=== PATIENT | female | born 2000 | race Caucasian/White ===

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

== ENCOUNTER 2018-09-08 12:08 | Observation (INO) ==
[2018-09-08 13:02] LABS: Bilirubin,Urine Negative (Negative); Blood,Urine Negative (Negative); Clarity,Urine Cloudy (Clear); Color,Urine Yellow (Yellow); Glucose,Urine (UA) Normal (Normal); Ketones,Urine 15 mg/dL (Negative); Leukocyte Esterase,Urine Moderate (Negative); Nitrite,Urine Negative (Negative); PH,Urine 7.5 pH Units (5.0-8.0); Protein,Urine Negative (Neg-Trace); Specific Gravity,Urine 1.012 (1.010-1.025); Urobilinogen,Urine Normal (Normal)
[2018-09-08 13:04] LABS: Hyaline Casts,Urine Moderate per lpf (None-Few); Squamous Epithelial Cell,Urine Moderate per lpf (None-Few); WBC,Urine 50-100 per hpf (0-3)
[2018-09-08 13:17] LABS: Bacteria,Urine Many per hpf (None-Few)
[2018-09-08 13:22] LABS: Amphetamine Screen,Urine Negative ng/mL (Cutoff=1000); Barbiturate Screen,Urine Negative ng/mL (Cutoff=200); Benzodiazepines Screen,Urine Negative ng/mL (Cutoff=200); Cannabinoid Screen,Urine Negative ng/mL (Cutoff = 50); Cocaine Screen,Urine Negative ng/mL (Cutoff= 300); Opiate Screen,Urine Negative ng/mL (Cutoff=300); Phencyclidine Screen,Urine Negative ng/mL (Cutoff=25)
[2018-09-08] MEDS ORDERED: Ringers Solution, Lactated 1,000 ML IVC ONE (13:33)
[2018-09-08] MEDS ORDERED: Ringers Solution, Lactated 1,000 ML IVC SCH (13:45)
[2018-09-08] MEDS ORDERED: NIFEdipine 10 MG CAPSULE PO SCH (14:45)
[2018-09-08] MEDS ORDERED: Betamethasone Acet/SodPhos 30 MG/5 ML VIAL IM SCH (14:45)
[2018-09-08] MEDS ORDERED: Terbutaline 1 MG/ML VIAL SQ ONE (17:19)
[2018-09-08 17:38] LABS: Candida DNA DETECTED (Not Detect); Gardnerella DNA Not Detected (Not Detect); Trichomonas DNA Not Detected (Not Detect)
--- NOTE | 2018-09-08 19:42 | OB/GYN Progress Note ---
Date of Encounter: 09/08/18 Time of Encounter: 19:39 - Assessment and Plan (1) 34 weeks gestation of Current Visit: Yes Status: Acute (2) Uterine contractions during Current Visit: Yes Status: Acute Patient given LR bolus, nifedipine 20 mg by mouth, and terbutaline. During stay to contractions are finally calmed. No change on serial cervical exams after multiple exams. Plan of care discussed with Dr. Burnett. Vaginosis panel shows yeast, will discharge home with Terazol cream and nifedipine for breakthrough contractions. Discharged home with labor and when to return to triage precautions. She will verbalizes understanding and is in agreement with plan Subjective - Subjective Interval history: 34+4 weeks gestation presents to triage with complaints of frequent painful uterine contractions. Patient states she is been having contractions since last evening more intense today reports good movement, had some leaking of fluid yesterday, none today. Denies vaginal bleeding. Antepartum ROS: loss of fluid, movement normal, contractions, no vaginal bleeding Objective - Vital Signs Vital Signs: Intake and Output 09/08/18 09/08/18 09/08/18 07:59 15:59 23:59 Other: Weight 89.9 kg Patient Weight 09/08/18 23:59 Weight 89.9 kg - Exam FHR: auscultation normal FHR comments: 140/category 1 tracing Abdomen: Present: soft Uterus: Present: normal Cervical dilation: /-2 - Labs Labs: Abnormal lab results Cloudy (Clear) A 09/08/18 12:41 15 mg/dL (Negative) H 09/08/18 12:41 Ur Leukocyte Esterase Moderate (Negative) H 09/08/18 12:41 50-100 per hpf (0-3) H 09/08/18 12:41 Ur Squamous Epith Cells Moderate per lpf (None-Few) H 09/08/18 12:41 Many per hpf (None-Few) H 09/08/18 12:41 Hyaline Casts Moderate per lpf (None-Few) H 09/08/18 12:41 Ur Culture Indicated? YES (NO) A 09/08/18 12:41 Dodie species DNA DETECTED (Not Detect) A 09/08/18 14:17
== END 2018-09-08 19:48 | disposition home or self-care (01) ==
LOC: 1NENULAB
PROVIDERS: ADMIT Obstetrics & Gynecology; ATTEND Obstetrics & Gynecology

== ENCOUNTER → 2018-09-09 16:07 | Observation (INO) ==
[2018-09-09 15:55] VITALS: BP 111/69
[~2018-09-09 16:07] MED LIST: Betamethasone Acet/SodPhos 30 MG/5 ML VIAL IM SCH
--- NOTE | 2018-09-17 10:30 | Event Note ---
Date of Encounter: 09/09/18 Time of Encounter: 15:30 Patient presented for follow-up Betamethasone injection to complete course of steroids. Injection was given by RN and patient left facility in stable condition.
== END | disposition home or self-care (01) ==
LOC: 1NENULAB
PROVIDERS: ADMIT Advanced Practice Midwife; ATTEND Advanced Practice Midwife

== ENCOUNTER 2018-10-11 06:00 | Inpatient (IN) ==
[2018-10-11] MEDS ORDERED: Metoclopramide 10 MG/2 ML VIAL IVP PRN (06:05)
[2018-10-11] MEDS ORDERED: Ondansetron 4 MG/2 ML VIAL IVP PRN ×2 (06:05→09:05)
[2018-10-11] MEDS ORDERED: miSOPROStol 25 MCG TABLET PO PRN (06:05)
[2018-10-11] MEDS ORDERED: Famotidine 20 MG/2 ML VIAL IVP PRN (06:05)
[2018-10-11] MEDS ORDERED: Lidocaine 1% 20 ML MDV INFILT PRN (06:05)
[2018-10-11] MEDS ORDERED: Naloxone 0.4 MG/ML INJ IVP PRN ×2 (06:05→09:05)
[2018-10-11] MEDS ORDERED: Ringers Solution, Lactated 1,000 ML IVC SCH (06:15)
[2018-10-11 06:40] LABS: Amphetamine Screen,Urine Negative ng/mL (Cutoff=1000)
[2018-10-11 06:41] LABS: Barbiturate Screen,Urine Negative ng/mL (Cutoff=200)
[2018-10-11 06:42] LABS: Benzodiazepines Screen,Urine Negative ng/mL (Cutoff=300); Cannabinoid Screen,Urine Negative ng/mL (Cutoff = 50); Cocaine Screen,Urine Negative ng/mL (Cutoff= 300); Opiate Screen,Urine Negative ng/mL (Cutoff=300); Phencyclidine Screen,Urine Negative ng/mL (Cutoff=25)
[2018-10-11 06:42] LABS: Basophils % 0.3 %; Eosinophils # 0.1 K/mcL (0.0-0.6); Eosinophils % 0.9 %; Hematocrit 32.1 % (35.3-44.9); Hemoglobin 10.1 g/dL (11.5-15.4); Immature Granulocytes % 0.9 % (0-4); Lymphocytes # 2.5 K/mcL (0.6-4.6); Lymphocytes % 35.2 %; Mean Corpuscular HGB Conc 31.5 g/dL (31.6-35.5); Mean Corpuscular Hemoglobin 26.2 pg (28.0-33.3); Mean Corpuscular Volume 83.4 fL (83.0-100.0); Monocytes # 0.6 K/mcL (0.0-1.3); Monocytes % 8.4 %; Neutrophils # 3.8 K/mcL (1.6-8.9); Platelet Count 235 K/mcL (140-400); Red Blood Count 3.85 M/mcL (3.82-4.97); Red Cell Distribution Width 13.9 % (11.5-14.5); Segmented Neutrophils % 54.3 %; White Blood Count 7.1 K/mcL (4.3-11.1)
--- NOTE | 2018-10-11 08:30 | OB/GYN History & Physical ---
Date of Encounter: 10/11/18 Time of Encounter: 08:26 Assessment and Plan (1) 39 weeks gestation of Current visit: No Status: Acute admitted for IOL Reactive NST PO cytotec 50mcg x1 May have Nubain or Epidural when desired Dr. Bolden here utilization supervisor and available if needed (2) Elective induction of labor planned Current visit: No Status: Acute Vargas Score 8 50mcg PO cytotec History of Present Illness Chief complaint: IOL HPI: Ms. Lan is a 18 year old female @ 39w2d presents for scheduled IOL for term with a favorable cervix. IOL discussed and reviewed with Dr. Bolden who agrees with POC. Patient reports good movement and irregular contractions. Patient denies LOF or VB. Patient received care with [facility]. Blood type: O+ Rubella: Immune Hep B: Nonreactive GBS: Negative Past Med Surg Social Fam HX - Past Medical History Source: patient Medical history: asthma Additional medical history: has 4 month old baby girl Psychiatric history: no psych history - Past Surgical History Surgical History: other Additional surgical history: vocal cord surgery - Social History Smoking Status: Never smoker Smokeless Tobacco Status: No Alcohol use: none Drug use: none - Family History Grandfather Living Status: Hx Family Cancer: Yes Hx Family Endocrine Disorder: Yes (diabetes) Obstetrical History - Pregnancies : 2 Para: 1 Term: 1 : 0 Ab's: 0 Livin Medications and Allergies Cephalexin [Keflex] 500 mg PO TID 10/11/18 [History] Allergy/AdvReac Type Severity Reaction Status Date / Time Amoxicillin [From Augmentin] Allergy Rash Verified 10/11/18 06:42 clavulanic acid Allergy Rash Verified 10/11/18 06:42 [From Augmentin] codeine Allergy Rash Verified 10/11/18 06:42 dextromethorphan Allergy Rash Verified 10/11/18 06:42 [From Capmist DM] guaifenesin [From Capmist DM] Allergy Rash Verified 10/11/18 06:42 Penicillins Allergy Rash Verified 10/11/18 06:42 pseudoephedrine Allergy Rash Verified 10/11/18 06:42 [From Capmist DM] Sulfa (Sulfonamide Allergy Rash Verified 10/11/18 06:42 Antibiotics) Review of System OB - Constitutional Constitutional ROS IM: no chills, no fever(s), no headache(s) - Cardiovascular Cardiovascular: no chest pain, no edema, no syncope - Respiratory Respiratory: no cough, no dyspnea - Genitourinary Genitourinary: no abnormal vaginal bleeding, no dyspareunia, no dysuria, no urinary frequency, no urinary hesitancy, no vaginal odor Exam - Constitutional Constitutional: well developed, well nourished, no acute distress, average body habitus - HEENT HEENT: Normocephaly, Mucus Membranes Moist - Neck Neck exam: full ROM, supple - Lungs Respiratory exam: CTAB - Cardiovascular Cardiovascular exam: RRR, +S1, +S2 - Abdomen Abdomen: Present: bowel sounds normal, gravid, non tender - Extremities Extremities exam: full ROM, normal capillary refill, normal inspection Deep Tendon Reflex Grade: 2+ Normal - Cervix Dilation: 4 Effacement: 80 Station: -1 - Uterus Uterus exam: Present: normal size, normal contour - Anus/Rectum Anus/Rectum: Present: normal perianal skin - Comments Comments: FHR 135 bpm moderate variability +accels no decels noted. Contractions 3-3.5 Cat. 1 tracing Results Result Diagrams: 10/11/18 06:06 Abnormal lab results Hgb 10.1 g/dL (11.5-15.4) L 10/11/18 06:06 Hct 32.1 % (35.3-44.9) L 10/11/18 06:06 MCH 26.2 pg (28.0-33.3) L 10/11/18 06:06 MCHC 31.5 g/dL (31.6-35.5) L 10/11/18 06:06 All other labs normal. - VTE Reasons for not Prescribing Prophylaxis: Treatment not Indicated - Low risk for VTE
[2018-10-11] MEDS ORDERED: EPHEDrine 50 MG/ML VIAL IVP PRN (09:05)
[2018-10-11] MEDS ORDERED: Ropivacaine/PF 0.2% 20 ML VIAL EP ONE (09:05)
[2018-10-11] MEDS ORDERED: *HR* FentaNYL (PF) 100 MCG/2 ML VIAL EP ONE (09:05)
[2018-10-11] MEDS ORDERED: Epidural Premix (fent/bupiv) 110 ML EP SCH (09:15)
[2018-10-11] MEDS ORDERED: Oxytocin 20 units/ LR 1000 mL 20 UNIT/1,000 ML BAG IVC ONE ×2 (09:19→13:49)
--- NOTE | 2018-10-11 09:43 | Anesthesia Evaluation PreOp ---
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 Other Medical History: Denies Any Significant HX, Other (recent tooth abcess, receiving antibiotic regimen) Anesthesia History: No Prior Anesthetic Complications, Past Anesthesia (Surgery on Vocal cords as a child) : Yes Alcohol Use: none Drug use: none Medications and Allergies Cephalexin [Keflex] 500 mg PO TID 10/11/18 [History] Allergy/AdvReac Type Severity Reaction Status Date / Time Amoxicillin [From Augmentin] Allergy Rash Verified 10/11/18 06:42 clavulanic acid Allergy Rash Verified 10/11/18 06:42 [From Augmentin] codeine Allergy Rash Verified 10/11/18 06:42 dextromethorphan Allergy Rash Verified 10/11/18 06:42 [From Capmist DM] guaifenesin [From Capmist DM] Allergy Rash Verified 10/11/18 06:42 Penicillins Allergy Rash Verified 10/11/18 06:42 pseudoephedrine Allergy Rash Verified 10/11/18 06:42 [From Capmist DM] Sulfa (Sulfonamide Allergy Rash Verified 10/11/18 06:42 Antibiotics) - Meds/Allergy Pre-op Review Medications Reviewed: Yes Allergies Reviewed: Yes Beta Blockers on Current Med List: No Anesthesia Results - Labs 10/11/18 06:06 Anesthesia Exam BP 125/75 P 80 R 18 98.9 Height: 5'8" Weight: 91.0kg NPO (# of Hours): 8 Pain Scale: 8 Pain Scale Used: Numeric (1 - 10) - HEENT Pupil (Motor): Pupils equal Mallampati: II Teeth: Normal Oral Opening: Greater than 3 - TURPENTINE FARMER LOC: Oriented TURPENTINE FARMER Motor: Normal RUE, Normal LUE, Normal RLE, Normal LLE, Normal Face TURPENTINE FARMER Sensory: Normal: RUE, LUE, RLE, LLE, Face - Cardiac Rhythm: Regular Murmur: None JVD: No Carotid Bruit: No - Pulmonary Breath Sounds: bilateral Clear Respiratory Effort: Symmetrical Anesthesia Assess/Plan ASA Score: 2 Level of consciousness: Cooperative, Oriented, Tranquil Anesthetic Plan: Epidural Autologous Blood: No Monitoring Plan: Standard Monitors Recovery Plan: Other
[2018-10-11] MEDS ORDERED: Epidural Premix (fent/bupiv) 110 ML EP ONE (09:44)
--- NOTE | 2018-10-11 10:13 | Anesthesia Procedures ---
Date of Encounter: 10/11/18 Time of Encounter: 09:21 Procedures: Anesthesia - Epidural/Spinal Patient ID/Chart reviewed: Yes Patient examined: Yes OB Eval: Gestational age: 39 OB Eval: : 2 OB Eval: Hx Para: 1 OB Eval: Dilated at (cm): 4 OB Eval: Contractions: Non-stressed pattern Consent Obtained: Yes Supplemental Oxygen: None/Room Air Site Prep: Aseptic Technique, Sterile prep and drape, Povidone-Iodine 1% Patient position: upright Local Anesthetic: Lidocaine 1% Amount of Local Anesthetic used: 3 Touhy Needle Gauge: 18 Touhy Needle Depth (cm): 4 Catheter Depth at Skin (cm): 12 Test Dose (1.5% Lido + Epi): Volume given (mls): 3 Test Dose Result: Negative Loading Dose: Fentanyl (mcg): 100 Loading Dose: Other: Ropivicaine 0.2% 5ml, NS 3ml Loading Dose Administered: Thru Catheter Infusion Med: 0.125% Bupivacaine w/ 2 mcg/ml Fentanyl Infusion Rate (mls/hr): [address]: Tegaderm, Tape Interspace Used: L4-L5 Loss of Resistance (WARD): Yes Blood: No CSF: No Paresthesia: No Procedure: STEPHON placed 1st pass in upright position. WARD achieved with normal saline. Catheter threaded with ease to 12cm at skin. Pt stated relief following bolus administration. VSS throughout. FHT 120s Vitals + FHT's: 0921 BP 120/79 P 95 R 18 1004 BP 110/64 P 82 R 16 FHT 120s
--- NOTE | 2018-10-11 10:53 | OB Labor Progress Note ---
Date of Encounter: 10/11/18 Time of Encounter: 10:51 Labor Progress Note - Subjective Subjective: Patient doing well, comfortable with epidural in place. Patient denies any questions or concerns. - Cervix Cervix: 8.5/100/0 - Heart Tones Heart Tones: 125 bpm moderate variability +15x15 accels no decels noted. CAt. 1 tracing - [place]: 2-3 min apart - Interventions Interventions: SVE, AROM moderate amount of clear fluid. Patient tolerated well. - Plan Physician notified: No Plan: Continue labor management anticipate
--- NOTE | 2018-10-11 12:05 | OB/GYN Procedure Note ---
Delivery - Delivery Date: 10/11/18 Provider: Michelle Anna Intrapartum events: none Delivery induction: AROM (at 8.5 cm dilation ), misoprostol Delivery monitor: external FHT, external uterine Anesthesia: epidural Quantitated Blood Loss: 100 - (s) A Infant Delivery Date: 10/11/18 Delivery Time: 11:44 Presentation: vertex Position: MEL Route of delivery: Gender: Male Viability: Viable Pounds: 8 Ounces: 12 Weight Gram: 3975 kg at 1 minute: 8 at 5 mins: 9 Shoulder Dystocia: not encountered Specimens collected: cord blood Placenta: spontaneous Cord: nuchal cord (x1), 3 umbilical vessels, nuchal reduced - Repair Episiotomy: none Laceration Description: Superficial (hemastatic) - Complications Delivery complications: none - Disposition Mom disposition: stable in LDR disposition: stable in LDR - Comments Comments: Called to delivery room, patient complete and +3 station. Patient is placed in stirrups and prepped for vaginal delivery. Under maternal effort patient delivered a viable male infant over an intact perineum. A nuchal cord x 1 was noted and easily reduced. No shoulder dystocia or meconium was encountered. was placed on maternal abdomen. Cord was clamped and cut after pulsations ceased. A cord segment and cord blood was collected. Placenta delivered spont aneously and visually intact. A few small superficial laceration were noted and hemastatic. FF U/3. Pericare provided. Apgars 8/9, EBL 100. Both Mother and stable in LDR for 2 hour recovery.
[2018-10-11] MEDS ORDERED: Oxytocin 20 units/ LR 1000 mL 20 UNIT/1,000 ML BAG IVC SCH (14:16)
[2018-10-11] MEDS ORDERED: Benzocaine/Menthol 56 GM AEROSOL SPRAY TP PRN (14:16)
[2018-10-11] MEDS ORDERED: Acetaminophen 325 MG TABLET PO PRN (14:16)
[2018-10-12] MEDS: Ibuprofen 600 MG TABLET PO PRN ×2 (00:51→11:34)
[2018-10-12 08:19] VITALS: BP 119/75
[2018-10-12] MEDS: Prenatal Vit/FA 1 EACH TABLET PO SCH ×2 (09:07→09:10)
--- NOTE | 2018-10-12 10:17 | Discharge Summary ---
Date of Encounter: 10/12/18 Time of Encounter: 10:15 - Discharge Diagnosis (1) Vaginal delivery Priority: Primary Status: Acute Comments: Feeling well Tolerating regular diet Pain well-controlled with by mouth pain meds Ambulating independently Voiding independently Lochia light Passing flatus, no BM yet Vital signs stable Discharge home today - Discharge Medications Prescriptions: New Ferrous Sulfate 325 mg PO DAILY tablet Acetaminophen [Tylenol] 650 mg PO Q6HR PRN tablet PRN Reason: Mild Pain Ibuprofen [Motrin] 600 mg PO Q6HR PRN #30 tablet PRN Reason: Cramping Benzocaine/Menthol [place] [Dermoplast [place]] 1 appl TP QID PRN aerosol PRN Reason: See Comments Docusate [Colace] 100 mg PO BID #30 capsule Continued Cephalexin [Keflex] 500 mg PO TID Home Medications: Cephalexin [Keflex] 500 mg PO TID 10/11/18 [History] Acetaminophen [Tylenol] 650 mg PO Q6HR PRN tablet 10/12/18 [Rx] Benzocaine/Menthol [place] [Dermoplast [place]] 1 appl TP QID PRN aerosol 10/12/18 [Rx] Docusate [Colace] 100 mg PO BID #30 capsule 10/12/18 [Rx] Ferrous Sulfate 325 mg PO DAILY tablet 10/12/18 [Rx] Ibuprofen [Motrin] 600 mg PO Q6HR PRN #30 tablet 10/12/18 [Rx] Allergies/Adverse Reactions: Allergy/AdvReac Type Severity Reaction Status Date / Time Amoxicillin [From Augmentin] Allergy Rash Verified 10/11/18 06:42 clavulanic acid Allergy Rash Verified 10/11/18 06:42 [From Augmentin] codeine Allergy Rash Verified 10/11/18 06:42 dextromethorphan Allergy Rash Verified 10/11/18 06:42 [From Capmist DM] guaifenesin [From Capmist DM] Allergy Rash Verified 10/11/18 06:42 Penicillins Allergy Rash Verified 10/11/18 06:42 pseudoephedrine Allergy Rash Verified 10/11/18 06:42 [From Capmist DM] Sulfa (Sulfonamide Allergy Rash Verified 10/11/18 06:42 Antibiotics) Data Procedures and tests throughout hospitalization: Laboratory Tests 10/11/18 10/11/18 06:06 06:25 WBC 7.1 RBC 3.85 Hgb 10.1 L Hct 32.1 L MCV 83.4 MCH 26.2 L MCHC 31.5 L RDW 13.9 Plt Count 235 MPV 11.0 Immature Gran % 0.9 Seg Neutrophils % 54.3 Lymphocytes % 35.2 Monocytes % 8.4 Eosinophils % 0.9 Basophils % 0.3 Neutrophils # 3.8 Lymphocytes # 2.5 Monocytes # 0.6 Eosinophils # 0.1 Basophils # 0.0 Urine Opiates Screen Negative Ur Barbiturates Screen Negative Ur Phencyclidine Scrn Negative Ur Amphetamines Screen Negative U Benzodiazepines Scrn Negative Urine Cocaine Screen Negative U Marijuana (THC) Screen Negative Ur Drug Screen Interp See Below Date of admission: 10/11/18 06:01 Discharging clinician: Viki Rayo Anticipated date of discharge: 10/12/18 - Patient Status Disposition: Home, Self-Care Condition: Good Functional capacity at discharge: independent ambulation Overall status at discharge: patient is progressing back to baseline - Discharge Instructions Follow Up With: Michelle Anna CNM [Non-Partnered Physician] - - Diet and Activity Activity: increase activity as tolerated Diet: regular diet Hospital Course Reason for admission: induction of labor, IUP at term Delivery: Episiotomy: none Laceration: none Other procedures: none complications: none Discharge diagnosis: IUP at term delivered baby: male Time Attestation: Total time spent providing and/or coordinating discharge services: Time Spent: Less than 30 minutes Exam - Constitutional Vitals: Temp Pulse Resp BP Pulse Ox 97.9 F 87 16 119/75 95 10/12/18 08:18 10/12/18 08:18 10/12/18 08:18 10/12/18 08:18 10/12/18 04:05 General appearance IM: A&O X 3, pleasant, no acute distress, answers questions appropriately - Respiratory Respiratory exam: Present: CTAB - Cardiovascular Cardiovascular exam IM: Present: RRR, +S1, +S2 - GI/Abdominal GI/Abdominal exam IM: normal bowel sounds, no peritoneal signs - Rectal Rectal exam: deferred - Uterine Tone: Firm Uterus Position: 2 Fingers Below Umbilicus, Midline - Extremities Exam Extremities exam IM: Present: full ROM, normal capillary refill, normal inspection, radial pulses palpable and symmetrical - Neurological Exam Neurological exam: alert, CN II-XII intact, normal gait, oriented X3, reflexes normal, no focal deficits, strengths equal and symetr throughout - Psychiatric Additional comments: Signs and symptoms of depression discussed with patient and partner and both verbalized understanding of when to seek help
== END 2018-10-12 13:11 | disposition home or self-care (01) | DRG 560 ==
LOC: 1NENULAB 06:01 → 1NENUOBS 14:05
PROVIDERS: ADMIT Advanced Practice Midwife; ATTEND Advanced Practice Midwife